=== PATIENT | female | born 1995 | race Caucasian/White ===

== ENCOUNTER 2024-11-06 21:09 | Emergency (ER) | payer MEDICAID, SELFPAY ==
[2024-11-06 21:10] VITALS: BMI 25.7
[2024-11-06 21:34] VITALS: BP 117/69; PULSE 94; RESP 20; TEMP 37.1; O2SAT 100
--- NOTE | 2024-11-06 21:37 | PC.NURSE ---
SPOKE WITH P, STATES WILL SEND AN OFFICER OUT
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
--- NOTE | 2024-11-06 21:38 | XR_ITS ---
EXAMINATION: Ankle, right 3 views . Technique: Ankle AP, oblique, lateral 3 views Date and time of exam: November 06, [id number] hrs. Indications: Injury to the ankle today, ankle pain. Findings: No acute fracture No dislocation No foreign body Impression: No acute fracture
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
[2024-11-06] MEDS: HYDROcodone/APAP 5/325 TABLET 1 TAB PO (21:53)
--- NOTE | 2024-11-06 21:55 | PC.NURSE ---
[facility] HERE SPEAKING WITH PT
[2024-11-06 23:54] VITALS: BP 147/101; PULSE 108; RESP 20; O2SAT 100
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
[2024-11-07] MEDS: DIPHTH,PERTUSS(ACELL),TET VAC 0.5 ML VIAL IMi (01:21)
[2024-11-07] MEDS: LIDOCAINE HCL 1% 20 ML VIAL 10 ML INFL (02:23)
--- NOTE | 2024-11-07 02:30 | PC.NURSE ---
Brodie wrap applied to R ankle by ED OFFAL ROLLER. crutches given to pt with instructions by OFFAL ROLLER.
== END 2024-11-07 02:30 | disposition home or self-care (01) ==
PROVIDERS: Emergency Provider Emergency Medicine; PCP Family Medicine
DX: S01.01XA Laceration without foreign body of scalp, initial encounter (principal); V03.10XA Pedestrian on foot injured in collision with car, pick-up truck or van in traffic accident, initial encounter; Z23 Encounter for immunization; R10.9 Unspecified abdominal pain; S86.811A Strain of other muscle(s) and tendon(s) at lower leg level, right leg, initial encounter
CPT/HCPCS: 12004; 70450; 71250; 72125; 73610; 74176; 90471; 90715; 99291; J3490; A9270

== ENCOUNTER 2025-10-03 13:21 | Emergency (ER) | payer MEDICAID, SELFPAY ==
[2025-10-03 13:21] VITALS: BMI 29.2
[2025-10-03 13:50] VITALS: BP 151/90; PULSE 100; RESP 18; TEMP 36.6; O2SAT 99
--- NOTE | 2025-10-03 13:59 | EDNOTE_ITS ---
<Statement entered by Dania Lee MD - 10/05/25 17:41> As co-signing physician, I was present and available for consult prn. I concur with the plan and care as documented by the midlevel provider. ED Abdominal Pain RME/HPI General Chief Complaint: Abdominal Pain Stated complaint: LLQ ABD PAIN X1 DAY; 7 WKS OB Time seen by provider: 10/03/25 13:53 Arrival date/time: 10/03/25 13:21 RME / HPI RME / HPI narrative: 30-year-old female with past medical history of 1 live via vaginal delivery last menstrual period July 27 who had a confirmed via the family clinic 3 weeks ago however no prior ultrasound presents to the ER complaining of vaginal spotting which began last night along with mild cramping. Denies any nausea, vomiting, dysuria. Related Data Home Medications ?Medication ?Instructions ?Recorded ?Confirmed Vits W-Ca,Fe,Fa(<1MG) 1 tab PO QDAY #0 tabs 1 11/23/15 ( Vitamin) Previous Rx's ?Medication ?Instructions ?Recorded carisoprodol 350 mg tablet 350 mg PO TID PRN pain #10 tabs 09/16/17 amoxicillin 875 mg-potassium 1 tab PO BID #20 tabs clavulanate 125 mg tablet (Augmentin) ibuprofen 600 mg tablet 600 mg PO Q8H PRN fever or p ain 01/02/18 #20 tabs cephalexin 500 mg capsule 500 mg PO QID #28 caps 10/03 Allergies Allergy/AdvReac Type Severity Reaction Status Date / Time No Known Allergies Allergy Verified 10/03/25 13:23 Course Quality Measures none Orders Category Date Time Status NPO NOW Care 10/03/25 14:42 Active Diet NPO (NOW) Diet 10/03/25 14:42 Active US OB <= 14 weeks fetus Stat Exams 10/03/25 14:42 Completed US OB transvaginal Stat Exams 10/03/25 14:42 Completed ABO/RH Type Stat Lab 10/03/25 14:54 Completed Beta HCG,Quantitative Stat Lab 10/03/25 14:54 Completed CBC Stat Lab 10/03/25 14:54 Completed CMP [Comprehensive Metabolic Panel] Stat Lab 10/03/25 14:54 Completed Lipase Stat Lab 10/03/25 14:54 Completed UA, C/S IF [Urinalysis, C/S if Indicated] Stat Lab 10/03/25 15:05 Completed Acetaminophen Tab [Tylenol Tab] Med 10/03/25 14:42 Discontinued 650 mg PO X1 ONE Vital Signs Vital signs: Vital Signs Temperature 98 F 10/03/25 13:50 Pulse Rate 100 10/03/25 13:50 Respiratory Rate 18 10/03/25 13:50 Blood Pressure 151/90 H 10/03/25 13:50 Pulse Oximetry (%) 99 10/03/25 13:50 Oxygen Delivery Method Room Air 10/03/25 13:50 Abdominal Pain MDM MDM Narrative MDM Narrative:: MDM: This patient is in the first trimester of her and after a careful history, physical exam, and evaluation, is found to be at risk of a spontaneous with an incomplete miscarriage as ultrasound noted a 10-week gestational sac with a pole without cardiac activity. The likelihood of an ectopic is extremely low. Patient is only spotting at this time. The patient is instructed to follow-up with an Data Abstractor within 48-72 hours for re-evaluation. The patient is warned to return to the ED if she develops significant bleeding, dizziness, syncope, or severe pain. Serial abdominal exams benign without peritonitis and patient remains hemodynamically stable. Patient data External records reviewed:: [facility] previous records Clinical information provided by:: patient Social determinants that could affect healthcare access:: none Patient has the following chronic illnesses:: As noted How is presenting disease/condition affected by chronic disease/condition?: no chronic disease Evaluation data The following diagnostics were reviewed and interpreted by me:: lab results and radiology exam(s) Lab and/or radiology exams considered but not ordered:: Additional Labs and radiology considered, but not ordered as they were not clinically indicated at this time. Interpretation Summary: WBC count minimally elevated 12.3 neutrophil number minimally elevated 8.3, monocyte number minimally elevated 1, eosinophils minimally elevated 0.6 thousand and immature granulocyte number elevated 0.04 thousand with a normal hemoglobin of 13.6 and hematocrit of 40.1, platelets also normal at 263,000 CMP notable for mild transaminitis as well with an AST of 43 and ALT of 66 UA with bacteria, amorphous crystals squamous cells which is contaminated Blood type is AB+ no indication for RhoGAM Beta-hCG is 7234 Ultrasound concerning for demise with a pole however no heart tracing measuring about 10 weeks Medications / Prescriptions Medications or Prescriptions considered but not ordered:: I ordered medications based on the patient?s clinical needs and assessment, as documented in the chart. For medications not prescribed, they were not indicated for the patient's current condition, and I determined they were unnecessary at this time to avoid potential risks or complications. Medication administrations:: Medication Administration History Discontinued Medications Acetaminophen (Acetaminophen 325 Mg Tablet) 650 mg PO X1 ONE Stop: 10/03/25 14:43 Last Admin: 10/03/25 16:37 Dose: 650 mg Documented By: VL As noted Consultations Consultation(s) initiated? (list below): No Consultation #1 (Physician, Specialty, Details): Dr. Mai, POLITICAL DIRECTOR, she advised patient okay to follow-up with POLITICAL DIRECTOR clinic this week and strict ER return precautions Time: 18:11 Diagnosis Differential diagnosis abdominal pain: abdominal pain Most likely diagnosis given after review of the tests above:: Incomplete versus missed Admission Indicated Admission indicated?: not indicated Admission Request Was there a request for admission?: No Disposition Plan Disposition Plan: Discharge Discharge Attestation Discharge Attestation: The patient and all family members were given an opportunity to ask questions and understood the discharge instructions. Discharge instructions specifically effects, indications for sooner follow up or return to the emergency department, and the expected course of current diagnosis. Patient condition: Stable Discharge Plan Plan Patient Disposition: HOME (Self Care) Patient condition on transfer: Stable Prescriptions/Referrals Prescriptions/Med Rec: New cephalexin 500 mg capsule 500 mg PO QID Qty: 28 0RF No Action Vits W-Ca,Fe,Fa(<1MG) ( Vitamin) 1 TAB tablet 1 tab PO QDAY Qty: 0 carisoprodol 350 MG tablet 350 mg PO TID PRN (Reason: pain) Qty: 10 0RF ibuprofen 600 mg tablet 600 mg PO Q8H PRN (Reason: fever or pain) Qty: 20 0RF amoxicillin-pot clavulanate [Augmentin] 875-125 mg tablet 1 tab PO BID Qty: 20 0RF Referrals: Hesham Barboza MD [Primary Care Provider, Family Practice] - In 1 week Alonzo Syed MD [Physician, POLITICAL DIRECTOR] - In 1 week Problem List Clinical Impression: Incomplete Patient/Caregiver Discharge Instructions Education Materials: ED Miscarriage, Incomplete Additional Instructions: Follow up with your primary medical doctor and an POLITICAL DIRECTOR doctor within 48 hours. Return to the Emergency Room immediately for any new, worsening, continuing symptoms or any concerns at all. Return to the Emergency Room within 48 hours if you are unable to follow up with your primary medical doctor and an POLITICAL DIRECTOR doctor within 48 hours. Print Language: Italian Stand Alone Forms: Cat Award Info., Patient Portal Info Letter PA/SHOULDER SAWYER Supervising Physician PA/SHOULDER SAWYER Supervising Physician: Dr. Lee
--- NOTE | 2025-10-03 14:42 | XR_ITS ---
Examination: OB Transvaginal ultrasound of the pelvis, complete Technique: Transvaginal sonographic images pelvis performed using harmon scale imaging Exam date and time: October 03, 2025, 1624 hours INDICATIONS: Vaginal bleeding and cramping beginning 2 days ago FINDINGS: Uterus 11.8 cm Intrauterine gestation, pole 3.3 cm corresponds to 10 weeks 1 day gestational age No cardiac motion Right ovary and left ovary obscured by bowel gas IMPRESSION: demise
--- NOTE | 2025-10-03 14:42 | XR_ITS ---
Examination: Complete OB ultrasound, less than 14 weeks, transabdominal Date and time of exam: October 03, 2025, 1612 hours INDICATIONS: Vaginal bleeding and pelvic cramping beginning 2 days ago Technique: Obstetrical ultrasound images less than 14 weeks performed via transabdominal imaging Findings: Uterus 13.7 cm CRL 3.1 cm corresponds to 10 weeks 0 days gestational age no heart tones Right ovary 3.1 cm arterial flow Left ovary obscured by bowel gas IMPRESSION: demise
[2025-10-03 15:07] LABS: Basophils # (Auto) 0.1 Thou/mm3 (0.0-0.2); Basophils % (Auto) 0 % (0-2.5); Eosinophils # (Auto) 0.6 Thou/mm3 (0.0-0.5); Eosinophils % (Auto) 5 % (0-10); Hematocrit 40.1 % (36.0-46.0); Hemoglobin 13.6 g/dL (12.0-16.0); Immature Granulocytes Auto 0.04 Thou/mm3 (0.00-0.00); Lymphocytes # (Auto) 2.4 Thou/mm3 (1.0-4.8); Lymphocytes % (Auto) 19 % (10-50); Mean Corpuscular HGB Conc 33.9 g/dl (31.0-37.0); Mean Corpuscular Hemoglobin 30.3 pg (25.0-35.0); Mean Corpuscular Volume 89 fL (80-100); Monocytes # (Auto) 1.0 Thou/mm3 (0.0-0.8); Monocytes % (Auto) 8 % (0-12); Neutrophils # (Auto) 8.3 Thou/mm3 (1.8-7.7); Neutrophils % (Auto) 67 % (37-80); Nucleated Red Blood Cell # 0.00 Thou/mm3 (0.00-0.00); Nucleated Red Blood Cell % 0 /100 WBC (0); Platelet Count 263 Thou/mm3 (140-440); RDW Standard Deviation 36.7 fL (36.4-46.3); Red Blood Count 4.49 Miln/mm3 (4.00-5.20); White Blood Count 12.3 Thou/mm3 (3.6-11.0)
[2025-10-03 15:25] LABS: Alanine Aminotransferase 66 U/L (10-49); Albumin, Serum 4.5 gm/dL (3.5-5.0); Albumin/Globulin Ratio 1.5 (1.2-2.2); Alkaline Phosphatase 109 U/L (46-116); Anion Gap 8 (7-16); Aspartate Amino Transferase 43 U/L (0-34); BUN/Creatinine Ratio 12 Ratio (12-20); Bilirubin,Total 0.3 mg/dL (0.3-1.2); Blood Urea Nitrogen 11 mg/dL (9-23); Calcium 9.6 mg/dL (8.3-10.6); Calcium (Corrected) 9.6 mg/dL (8.5-10.1); Carbon Dioxide 24.6 mMol/L (20.0-31.0); Chloride 106 mMol/L (98-107); Creatinine (Component) 0.9 mg/dL (0.6-1.3); Estimated Creatinine Clearance 90.2 mL/min (>60); Globulin 3.1 gm/dL (2.3-3.5); Glucose 91 mg/dL (74-106); Lipase 45 U/L (12-53); Osmolality,Calculated 276 (275-295); Potassium 4.6 mMol/L (3.4-5.1); Sodium 139 mMol/L (136-145); Total Protein 7.6 gm/dL (5.7-8.2); eGFR > 60 See Note
[2025-10-03 15:28] LABS: Collection Type, Urine Clean Catch
[2025-10-03 15:48] LABS: Beta HCG,Quantitative 7234 mIU/mL (<5.0)
[2025-10-03 16:01] LABS: Amorphous Crystals,Urine Present (Absent); Bacteria,Urine 4+; Bilirubin,Urine Negative (Negative); Blood,Urine 2+ (Negative); Clarity,Urine Turbid (Clear/Hazy); Color,Urine Yellow (Lt Yel-Yel); Culture Indicated,Urine Contaminated; Glucose, Urine Negative (Negative); Ketones,Urine Negative (Negative); Leukocyte Esterase,Urine Positive (Negative); Nitrite,Urine Negative (Negative); PH,Urine 6.5 (5.0-7.0); Protein,Urine 1+ (Neg - Trace); RBC,Urine 62 /hpf (0-3); Specific Gravity,Urine 1.025 (1.001-1.035); Squamous Epithelial Cell,Urine 25 /hpf (0-5); Urobilinogen,Urine Negative mg/dL (0.0-1.0); WBC,Urine 7 /hpf (0-5)
[2025-10-03] MEDS: ACETAMINOPHEN 325 MG TABLET 650 MG PO (16:37)
--- NOTE | 2025-10-03 18:11 | PD.GYNCONS ---
SIGNALING DESIGN ENGINEER HPI Data of Consult Primary Care Provider: Hesham Barboza MD Consult Narrative cc:: cc: Meds Home Medications and Allergies Home Medications ?Medication ?Instructions ?Recorded ?Confirmed ?Type Vits W-Ca,Fe,Fa(<1MG) 1 tab PO QDAY #0 tabs 09/22/16 History ( Vitamin) Allergies Allergy/AdvReac Type Severity Reaction Status Date / Time No Known Allergies Allergy Verified 10/03/25 13:23 Exam - SIGNALING DESIGN ENGINEER Vital Signs Temp Pulse Resp BP Pulse Ox O2 Del Method 98 F 100 18 151/90 H 99 Room Air 10/03/25 13:50 10/03/25 13:50 10/03/25 13:50 10/03/25 13:50 10/03/25 13:50 10/03/25 13:50 SIGNALING DESIGN ENGINEER - Results Labs 10/03/25 14:54 10/03/25 14:54 Labs: Short CBC 10/03/25 Range/Units 14:54 WBC 12.3 H (3.6-11.0) Thou/mm3 Hgb 13.6 (12.0-16.0) g/dL Hct 40.1 (36.0-46.0) % Plt Count 263 (140-440) Thou/mm3 BMP 10/03/25 14:54 Sodium 139 Potassium 4.6 Chloride 106 Carbon Dioxide 24.6 BUN 11 Creatinine 0.9 Glucose 91 Calcium 9.6 Liver Function 10/03/25 Range/Units 14:54 Total Bilirubin 0.3 (0.3-1.2) mg/dL AST 43 H (0-34) U/L ALT 66 H (10-49) U/L Alkaline Phosphatase 109 (46-116) U/L Albumin 4.5 (3.5-5.0) gm/dL Urine 10/03/25 Range/Units 15:05 Urine Color Yellow (Lt Yel-Yel) Urine Clarity Turbid A (Clear/Hazy) Urine pH 6.5 (5.0-7.0) Ur Specific [place] 1.025 (1.001-1.035) Urine Protein 1+ A (Neg - Trace) Urine Glucose (UA) Negative (Negative) Assessment and Plan Assessment and plan (1) Missed : Status: Acute Assessment and plan: I spoke with POLI Gaxiola regarding Izabel's care. She presented to ER with spotting and ultrasound shows intra-uterine 10w1d FP with absent FCA, which is diagnostic of missed . Hgb is stable at 13.6. Vitals wnl (with exception of hypertensive bp). Patient to make an appt at [facility] to establish care this week. No need for surgical management tonight given patient's absence of bleeding. Patient to be counseled on return precautions including very heavy bleeding >2 pads per hour, pre-/syncope, sx of infection (fevers/chills). Leighann Mai MD
== END 2025-10-03 18:47 | disposition home or self-care (01) ==
PROVIDERS: Physician Assistant; Emergency Provider Emergency Medicine; PCP Family Medicine
DX: O03.4 Incomplete spontaneous abortion without complication (principal)
CPT/HCPCS: 36415; 76801; 76817; 80053; 81001; 83690; 84702; 85025; 86900; 86901; 99283; A9270

== ENCOUNTER 2025-10-05 09:27 | Outpatient (AMB) | payer MEDICAID, SELFPAY ==
[2025-10-05 09:36] VITALS: BP 149/99; PULSE 116; RESP 18; TEMP 36.6; O2SAT 98; BMI 30.5
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
== END 2025-10-05 09:48 | disposition home or self-care (01) ==
LOC: HODSOBC 09:27
PROVIDERS: PCP Family Medicine; Referring Provider Family Medicine; Supervising Provider Obstetrics & Gynecology; Visit Provider Obstetrics & Gynecology
DX: O03.4 Incomplete spontaneous abortion without complication (principal); F17.210 Nicotine dependence, cigarettes, uncomplicated; Z71.6 Tobacco abuse counseling
CPT/HCPCS: 99213; G0463